=== PATIENT | female | born 1950 | race Caucasian/White ===

== ENCOUNTER 2022-03-27 11:57 | Inpatient (IN) | payer MEDICARE, BC ==
[~2022-03-27] VITALS: Ht 160 cm; Wt 45.5 kg
[2022-03-27] MEDS ORDERED: normal saline 1000ML IV soln IVB ONE (14:45)
[2022-03-27] MEDS ORDERED: LORazepam 2 mg/ml vial IV ONE (14:45)
[2022-03-27 15:26] LABS: CLARITY,URINE SLIGHTLY CLOUDY (Clear); COLOR,URINE YELLOW (Yellow); GLUCOSE, URINE NEGATIVE (Neg); KETONES,URINE 15 mg/dl (Neg); LEUKOCYTE ESTERASE ,URINE TRACE (Neg); NITRITES, URINE NEGATIVE (Neg); OCCULT BLOOD,URINE TRACE-INTACT (Neg); PROTEIN,URINE 30 mg/dl (Neg); UA COLLECTION TYPE CLN CATCH MIDSTREAM; UROBILINOGEN,URINE 0.2 E.U/dL (0.2-1.0)
[2022-03-27 15:36] LABS: BASOPHILS % (AUTO) 0.2 % (0-1); EOSINOPHILS # (AUTO) 0.1 X10'3 (0-0.9); EOSINOPHILS % (AUTO) 0.5 % (0-6); HEMATOCRIT 31.9 % (35.0-45.0); HEMOGLOBIN 10.6 g/dl (12.0-16.0); LYMPHOCYTES # (AUTO) 0.6 X10'3 (1.1-4.8); LYMPHOCYTES % (AUTO) 5.1 % (21-51); MEAN CORPUSCULAR HEMOGLOBIN 29.8 PG (27.0-31.0); MEAN CORPUSCULAR HGB CONC 33.1 g/dL (33.0-36.5); MEAN CORPUSCULAR VOLUME 90.3 FL (78-98); MEAN PLATELET VOLUME 6.6 FL (7.4-10.4); MONOCYTES # (AUTO) 0.8 X10'3 (0-0.9); MONOCYTES % (AUTO) 6.5 % (2-12); NEUTROPHILS # (AUTO) 10.6 X10'3 (1.8-7.7); NEUTROPHILS % (AUTO) 87.7 % (42-75); PLATELET COUNT 423 X10'3 (140-440); RED BLOOD COUNT 3.54 X10'6 (4.20-5.60); RED CELL DISTRIBUTION WIDTH 12.5 % (11.5-14.5); WHITE BLOOD COUNT 12.1 X10'3 (4.5-11.0)
[2022-03-27 15:39] LABS: BACTERIA,URINE 1+ /HPF (Neg); RBC,URINE 0-2 /HPF (0-2); WBC,URINE 20-30 /HPF (0-4)
[2022-03-27 15:41] LABS: MUCUS STRANDS NONE SEEN /LPF (Neg); SQUAMOUS EPITHELIAL CELL,UR MODERATE /LPF (FEW); WBC CLUMPS,URINE FEW /HPF (NEGATIVE)
[2022-03-27 16:06] LABS: ALANINE AMINOTRANSFERASE 23 U/L (12-78); ALBUMIN 2.2 G/DL (3.4-5.0); ALBUMIN/GLOBULIN RATIO 0.6 (1.1-1.5); ALKALINE PHOSPHATASE 85 IU/L (46-116); ANION GAP 4 (8-16); ASPARTATE AMINO TRANSFERASE 22 U/L (10-37); BILIRUBIN,TOTAL 0.4 MG/DL (0.1-1.0); BLOOD UREA NITROGEN 10 MG/DL (7-18); BUN/CREATININE RATIO 21.7 (6.6-38.0); CALCIUM 8.3 MG/DL (8.5-10.1); CHLORIDE 84 MMOL/L (99-107); CREATININE 0.46 MG/DL (0.40-0.90); GLUCOSE 99 MG/DL (70-104); POTASSIUM 3.5 MMOL/L (3.5-5.1); TOTAL CARBON DIOXIDE 28.2 MMOL/L (24-32); TOTAL PROTEIN 6.2 G/DL (6.4-8.2); eGFR > 90 ML/MIN
[2022-03-27 16:11] LABS: SODIUM 116 MMOL/L (135-145)
[2022-03-27] MEDS ORDERED: CefTRIAXone 2gm/D5W 50ml BAG 50 ML IV ONE (16:25)
[2022-03-27] MEDS ORDERED: normal saline 1000ML IV soln IV ONE (16:26)
[2022-03-27] MEDS ORDERED: acetaminophen 325mg tablet PO PRN ×2 (17:55)
[2022-03-27] MEDS ORDERED: magnesium hydroxide 30ml (MOM) UD suspension PO PRN (17:55)
[2022-03-27] MEDS ORDERED: mag hydrox/Alum hydrox/simeth 30ml oral suspension PO PRN (17:55)
[2022-03-27] MEDS ORDERED: potassium Cl 40MEQ/1/2NS 520ml 520 ML IV PRN (17:55)
[2022-03-27] MEDS ORDERED: HYDROcodone/acetaminophen 10/325mg tab PO PRN (17:55)
[2022-03-27] MEDS ORDERED: ondansetron/PF 4mg/2ml inj IV PRN (17:55)
[2022-03-27] MEDS ORDERED: magnesium 4gm in 100ml NS 100 ML IV PRN (17:55)
[2022-03-27] MEDS ORDERED: HYDROcodone/acetaminophen 5mg/325mg tablet PO PRN (17:55)
[2022-03-27] MEDS ORDERED: potassium Cl 20 mEq SR tablet PO PRN ×2 (17:55)
[2022-03-27] MEDS ORDERED: magnesium Cl slow-release 64mg tablet PO PRN (17:55)
[2022-03-27] MEDS ORDERED: sodium chloride 3% IV.soln 100 ML IV PRN (18:10)
[2022-03-27 18:19] LABS: URINE AMPHETAMINE SCREEN NEGATIVE (Neg); URINE BARBITUATE SCREEN NEGATIVE (Neg); URINE BENZODIAZEPINES SCREEN POSITIVE (Neg); URINE CANNABINOID SCREEN NEGATIVE (Neg); URINE COCAINE SCREEN NEGATIVE (Neg); URINE METHADONE SCREEN NEGATIVE (Neg); URINE OPIATE SCREEN NEGATIVE (Neg); URINE PHENCYCLIDINE SCREEN NEGATIVE (Neg)
[2022-03-27 18:31] LABS: ETHANOL < 0.010 GM/DL (0.0-0.010); MAGNESIUM 1.5 MG/DL (1.5-2.4); POTASSIUM 3.5 MMOL/L (3.5-5.1)
[2022-03-27] MEDS ORDERED: iohexol 300mg/ml 100ml inj. ONE (18:52)
[2022-03-27] MEDS: K and/or MAG REPLACEMENT MC SCH (19:59)
[2022-03-27] MEDS: docusate sod 100mg capsule PO SCH (20:05)
[2022-03-27] MEDS: LORazepam 0.5 MG tablet PO SCH (20:05)
[2022-03-27 20:40] LABS: CLARITY,URINE CLEAR (Clear); GLUCOSE, URINE NEGATIVE (Neg); KETONES,URINE NEGATIVE (Neg); LEUKOCYTE ESTERASE ,URINE NEGATIVE (Neg); NITRITES, URINE NEGATIVE (Neg); OCCULT BLOOD,URINE NEGATIVE (Neg); PH,URINE 7.5 (4.8-8.0); PROTEIN,URINE NEGATIVE (Neg); UROBILINOGEN,URINE 0.2 E.U/dL (0.2-1.0)
[2022-03-27] MEDS ORDERED: temazepam 15mg capsule PO PRN (21:00)
--- NOTE | 2022-03-27 21:08 | NUR ---
PT WAS ATTEMPTING TO AMBULATE TO RESTROOM WITH ASSISTING HER. PT STATES SHE LOST BALANCE AND LANDED ON HER HEAD FROM STANDING POSITION. UPON ASSESSMENT, PUPILS ARE 3 MM IN DIAMETER AND EQUAL AND REACTIVE TO LIGHT. BACK OF HEAD IS UNREMARKABLE. NO REDNESS, SWELLING, OR OPEN AREAS NOTED. MARIEL JEFFREY INFORMED OF FALL. MARIEL JEFFREY GAVE VERBAL ORDERS TO HAVE A HEAD CT DONE.
[2022-03-27 21:38] LABS: UA COLLECTION TYPE NON-SPECIFIED
[2022-03-27 21:39] LABS: COLOR,URINE STRAW (Yellow)
[2022-03-27 21:55] LABS: SODIUM,URINE RANDOM 19 MEQ/L; TOTAL PROTEIN,URINE RANDOM < 6.0 MG/DL
[2022-03-27 22:14] LABS: OSMOLALITY UA 169 MOSM/K (50-1400)
[2022-03-27 23:02] LABS: UA EOSINOPHILS NO EOS /HPF
--- NOTE | 2022-03-28 02:56 | NUR ---
PAGER ID: [phone] MESSAGE: TyosminCaitlin, in ER bed 7 had a critical low Na of 116 earlier in the afternoon. Na now 126 at 0050. Do you want the 3% Na ordered earlier, or NS maintenance? Amrita TRUONG [phone]
[2022-03-28] MEDS ORDERED: normal saline 1000ml 1,000 ML IVB SCH (03:05)
[2022-03-28] MEDS: docusate sod 100mg capsule PO SCH ×2 (08:00→20:30)
[2022-03-28] MEDS: K and/or MAG REPLACEMENT MC SCH ×2 (08:00→20:00)
[2022-03-28] MEDS: ESCITALOPRAM OXALATE 5 MG TABLET PO SCH (08:33)
[2022-03-28] MEDS: enoxaparin 40mg/0.4ml syringe SUBCUT SCH (08:33)
[2022-03-28] MEDS: LORazepam 0.5 MG tablet PO SCH ×2 (08:33→20:30)
--- NOTE | 2022-03-28 09:35 | NUR ---
PT OUT TO MRI.
--- NOTE | 2022-03-28 09:45 | NUR ---
SPOKE WITH DR. RODRIGUEZ AND RECEIVED VO PT TO CONTINUE EYE GTTS FROM HOME THAT PT IS TAKING FOR POST CATARACT REMOVAL
[2022-03-28] MEDS ORDERED: OFLO5DRO LEFTEYE (10:35)
[2022-03-28] MEDS ORDERED: PRED5DRO23 LEFTEYE (10:35)
[2022-03-28] MEDS ORDERED: KETO5DRO82 LEFTEYE (10:35)
[2022-03-28 11:04] LABS: BASOPHILS % (AUTO) 0.3 % (0-1); EOSINOPHILS # (AUTO) 0.1 X10'3 (0-0.9); EOSINOPHILS % (AUTO) 0.8 % (0-6); HEMATOCRIT 35.7 % (35.0-45.0); HEMOGLOBIN 11.9 g/dl (12.0-16.0); LYMPHOCYTES # (AUTO) 0.5 X10'3 (1.1-4.8); LYMPHOCYTES % (AUTO) 5.1 % (21-51); MEAN CORPUSCULAR HEMOGLOBIN 30.3 PG (27.0-31.0); MEAN CORPUSCULAR HGB CONC 33.2 g/dL (33.0-36.5); MEAN CORPUSCULAR VOLUME 91.3 FL (78-98); MEAN PLATELET VOLUME 6.7 FL (7.4-10.4); MONOCYTES # (AUTO) 0.5 X10'3 (0-0.9); MONOCYTES % (AUTO) 5.7 % (2-12); NEUTROPHILS % (AUTO) 88.1 % (42-75); PLATELET COUNT 444 X10'3 (140-440); RED BLOOD COUNT 3.91 X10'6 (4.20-5.60); RED CELL DISTRIBUTION WIDTH 12.8 % (11.5-14.5); WHITE BLOOD COUNT 9.1 X10'3 (4.5-11.0)
[2022-03-28] MEDS: prednisoLONE acetate 1% ophth susp 5ml LEFTEYE SCH ×4 (11:26→20:30)
[2022-03-28] MEDS ORDERED: GADOTERATE MEGLUMINE 7.5 MMOL/15 ML VIAL IV ONE (11:27)
[2022-03-28 11:29] LABS: ALANINE AMINOTRANSFERASE 22 U/L (12-78); ALBUMIN 2.1 G/DL (3.4-5.0); ALBUMIN/GLOBULIN RATIO 0.5 (1.1-1.5); ALKALINE PHOSPHATASE 85 IU/L (46-116); ANION GAP 8 (8-16); ASPARTATE AMINO TRANSFERASE 22 U/L (10-37); BILIRUBIN,TOTAL 0.3 MG/DL (0.1-1.0); BLOOD UREA NITROGEN 7 MG/DL (7-18); BUN/CREATININE RATIO 12.3 (6.6-38.0); CALCIUM 8.3 MG/DL (8.5-10.1); CHLORIDE 94 MMOL/L (99-107); CREATININE 0.57 MG/DL (0.40-0.90); GLUCOSE 85 MG/DL (70-104); MAGNESIUM 1.7 MG/DL (1.5-2.4); PHOSPHORUS 2.8 MG/DL (2.3-4.5); POTASSIUM 3.5 MMOL/L (3.5-5.1); SODIUM 129 MMOL/L (135-145); TOTAL CARBON DIOXIDE 26.6 MMOL/L (24-32); TOTAL PROTEIN 6.1 G/DL (6.4-8.2); eGFR > 90 ML/MIN
[2022-03-28] MEDS: ketorolac tromethamine 0.5% ophthalmic drops LEFTEYE SCH ×4 (11:34→20:30)
[2022-03-28] MEDS ORDERED: CHOL10006 PO (11:45)
[2022-03-28] MEDS ORDERED: ESCI-8 PO (11:45)
[2022-03-28] MEDS ORDERED: CALC-97 PO (11:45)
[2022-03-28] MEDS: ofloxacin 0.33% 5ml ophthalmic drops LEFTEYE SCH ×4 (11:45→20:30)
[2022-03-28] MEDS ORDERED: MULT-1085 PO (11:45)
--- NOTE | 2022-03-28 19:30 | NUR ---
Patient in room PCU 3024. I have received report from Amrita NICHOLS RN and had the opportunity to ask questions and assume patient care.
[2022-03-28 20:00] VITALS: BP 107/62
[2022-03-29 02:00] VITALS: BP 106/63
[2022-03-29 06:00] VITALS: BP 114/63
[2022-03-29 06:41] LABS: BASOPHILS % (AUTO) 0.4 % (0-1); EOSINOPHILS % (AUTO) 0.3 % (0-6); HEMATOCRIT 30.4 % (35.0-45.0); HEMOGLOBIN 10.6 g/dl (12.0-16.0); LYMPHOCYTES # (AUTO) 0.5 X10'3 (1.1-4.8); LYMPHOCYTES % (AUTO) 5.1 % (21-51); MEAN CORPUSCULAR HEMOGLOBIN 31.1 PG (27.0-31.0); MEAN CORPUSCULAR HGB CONC 34.9 g/dL (33.0-36.5); MEAN CORPUSCULAR VOLUME 88.9 FL (78-98); MEAN PLATELET VOLUME 6.6 FL (7.4-10.4); MONOCYTES # (AUTO) 0.9 X10'3 (0-0.9); MONOCYTES % (AUTO) 9.2 % (2-12); NEUTROPHILS # (AUTO) 8.7 X10'3 (1.8-7.7); PLATELET COUNT 407 X10'3 (140-440); RED BLOOD COUNT 3.42 X10'6 (4.20-5.60); RED CELL DISTRIBUTION WIDTH 12.6 % (11.5-14.5); WHITE BLOOD COUNT 10.3 X10'3 (4.5-11.0)
--- NOTE | 2022-03-29 06:53 | NUR ---
Problems reprioritized. Patient report given, questions answered & plan of care reviewed with Karen TRUONG.
[2022-03-29 07:11] LABS: ALANINE AMINOTRANSFERASE 17 U/L (12-78); ALBUMIN 1.8 G/DL (3.4-5.0); ALBUMIN/GLOBULIN RATIO 0.5 (1.1-1.5); ALKALINE PHOSPHATASE 74 IU/L (46-116); ANION GAP 6 (8-16); ASPARTATE AMINO TRANSFERASE 20 U/L (10-37); BILIRUBIN,TOTAL 0.4 MG/DL (0.1-1.0); BLOOD UREA NITROGEN 9 MG/DL (7-18); BUN/CREATININE RATIO 19.1 (6.6-38.0); CALCIUM 7.8 MG/DL (8.5-10.1); CHLORIDE 95 MMOL/L (99-107); CREATININE 0.47 MG/DL (0.40-0.90); GLUCOSE 86 MG/DL (70-104); MAGNESIUM 1.6 MG/DL (1.5-2.4); PHOSPHORUS 2.5 MG/DL (2.3-4.5); POTASSIUM 3.9 MMOL/L (3.5-5.1); SODIUM 129 MMOL/L (135-145); TOTAL CARBON DIOXIDE 27.7 MMOL/L (24-32); TOTAL PROTEIN 5.4 G/DL (6.4-8.2); eGFR > 90 ML/MIN
[2022-03-29] MEDS: K and/or MAG REPLACEMENT MC SCH ×2 (08:00→20:00)
--- NOTE | 2022-03-29 08:44 | NUR ---
Noted low BMI using bed scale wt. Pt appears WD/WN per MD note, no other wt hx in EMR. Pt denies any recent wt loss or decrease in appetite per MST. On Heart Healthy diet pending PO intake, Will continue to monitor. Addendum: 03/29/22 at [address] Amended: Links added.
[2022-03-29] MEDS: prednisoLONE acetate 1% ophth susp 5ml LEFTEYE SCH ×4 (08:51→20:52)
[2022-03-29] MEDS: ESCITALOPRAM OXALATE 5 MG TABLET PO SCH (08:52)
[2022-03-29] MEDS: LORazepam 0.5 MG tablet PO SCH ×2 (08:52→20:45)
[2022-03-29] MEDS: docusate sod 100mg capsule PO SCH ×2 (08:53→20:45)
[2022-03-29] MEDS: enoxaparin 40mg/0.4ml syringe SUBCUT SCH (08:53)
[2022-03-29] MEDS: ofloxacin 0.33% 5ml ophthalmic drops LEFTEYE SCH ×4 (08:57→20:52)
[2022-03-29] MEDS: ketorolac tromethamine 0.5% ophthalmic drops LEFTEYE SCH ×4 (09:10→20:52)
[2022-03-29 11:50] VITALS: BP 95/55
[2022-03-29] MEDS: DOXYCYCLINE 100MG CAPSULE PO SCH ×2 (12:38→20:45)
[2022-03-29 12:47] LABS: OSMOLALITY 260 MOSM/K (280-300)
[2022-03-29 12:50] LABS: SODIUM 126 MMOL/L (135-145)
[2022-03-29] MEDS: normal saline 1000ml 1,000 ML IV SCH (15:05)
[2022-03-29 18:00] VITALS: BP 109/64
--- NOTE | 2022-03-29 18:00 | NUR ---
Patient in room PCU 3024. I have received report from Karen TRUONG and had the opportunity to ask questions and assume patient care.
--- NOTE | 2022-03-29 18:31 | NUR ---
Report to Sophy TRUONG remains at bedside. Patient is very fatigued. Encouraged to rest, use wick for noc to conserve energy.
[2022-03-29 22:00] VITALS: BP 104/58
[2022-03-30 02:00] VITALS: BP 108/55
[2022-03-30] MEDS: normal saline 1000ml 1,000 ML IV SCH ×2 (02:39→09:25)
[2022-03-30 06:38] LABS: BASOPHILS % (AUTO) 0.5 % (0-1); EOSINOPHILS % (AUTO) 0.3 % (0-6); HEMATOCRIT 28.6 % (35.0-45.0); LYMPHOCYTES # (AUTO) 0.5 X10'3 (1.1-4.8); LYMPHOCYTES % (AUTO) 5.8 % (21-51); MEAN CORPUSCULAR HEMOGLOBIN 31.2 PG (27.0-31.0); MEAN CORPUSCULAR HGB CONC 34.9 g/dL (33.0-36.5); MEAN CORPUSCULAR VOLUME 89.2 FL (78-98); MEAN PLATELET VOLUME 6.4 FL (7.4-10.4); MONOCYTES # (AUTO) 0.8 X10'3 (0-0.9); MONOCYTES % (AUTO) 8.7 % (2-12); NEUTROPHILS # (AUTO) 7.8 X10'3 (1.8-7.7); NEUTROPHILS % (AUTO) 84.7 % (42-75); PLATELET COUNT 366 X10'3 (140-440); RED CELL DISTRIBUTION WIDTH 12.6 % (11.5-14.5); WHITE BLOOD COUNT 9.2 X10'3 (4.5-11.0)
[2022-03-30 06:46] LABS: ALANINE AMINOTRANSFERASE 17 U/L (12-78); ALBUMIN 1.6 G/DL (3.4-5.0); ALBUMIN/GLOBULIN RATIO 0.5 (1.1-1.5); ALKALINE PHOSPHATASE 71 IU/L (46-116); ANION GAP 5 (8-16); ASPARTATE AMINO TRANSFERASE 17 U/L (10-37); BILIRUBIN,TOTAL 0.4 MG/DL (0.1-1.0); BLOOD UREA NITROGEN 6 MG/DL (7-18); BUN/CREATININE RATIO 14.6 (6.6-38.0); CALCIUM 7.5 MG/DL (8.5-10.1); CHLORIDE 97 MMOL/L (99-107); CREATININE 0.41 MG/DL (0.40-0.90); GLUCOSE 86 MG/DL (70-104); MAGNESIUM 1.6 MG/DL (1.5-2.4); PHOSPHORUS 2.6 MG/DL (2.3-4.5); POTASSIUM 3.1 MMOL/L (3.5-5.1); SODIUM 130 MMOL/L (135-145); TOTAL CARBON DIOXIDE 27.8 MMOL/L (24-32); eGFR > 90 ML/MIN
[2022-03-30 07:00] VITALS: BP 106/57
--- NOTE | 2022-03-30 07:20 | NUR ---
Problems reprioritized. Patient report given, questions answered & plan of care reviewed with Delilah Vega RN.
[2022-03-30] MEDS: enoxaparin 40mg/0.4ml syringe SUBCUT SCH (09:23)
[2022-03-30] MEDS: ketorolac tromethamine 0.5% ophthalmic drops LEFTEYE SCH (09:23)
[2022-03-30] MEDS: prednisoLONE acetate 1% ophth susp 5ml LEFTEYE SCH (09:23)
[2022-03-30] MEDS: DOXYCYCLINE 100MG CAPSULE PO SCH (09:23)
[2022-03-30] MEDS: ofloxacin 0.33% 5ml ophthalmic drops LEFTEYE SCH (09:23)
[2022-03-30] MEDS: ESCITALOPRAM OXALATE 5 MG TABLET PO SCH (09:24)
[2022-03-30] MEDS: docusate sod 100mg capsule PO SCH (09:25)
[2022-03-30] MEDS: LORazepam 0.5 MG tablet PO SCH (09:25)
[2022-03-30 11:00] VITALS: BP 104/50
[2022-03-30] MEDS ORDERED: ALPRAZolam 0.25mg tablet PO PRN (11:35)
[2022-03-30] MEDS ORDERED: ESCI5TAB PO (11:46)
[2022-03-30] MEDS ORDERED: ALPR-149 PO (11:46)
[2022-03-30] MEDS ORDERED: DOXY-224 PO (11:46)
--- NOTE | 2022-03-30 14:35 | NUR ---
Patient was DC to home and went home with . PT eye drops went home with them. RX were escripted to [facility]. DC instructions and warning s/s were reviewed with patient and and they verbalized understanding. PIV was removed with cannula intact. Patient alert , oriented and appropriate at time of DC.
== END 2022-03-30 13:45 | disposition home health service (06) | DRG 689 ==
LOC: ER 11:58 → ED HOLD 17:56 → EDBEDREQ 20:34 → PCU 3S 03-28 19:25
PROVIDERS: ADMIT Family Medicine; ATTEND Family Medicine
PROC: BW251ZZ Computerized Tomography (CT Scan) of Chest, Abdomen and Pelvis using Low Osmolar Contrast (ICD-10-PCS; principal; 2022-03-27)
DX: N39.0 Urinary tract infection, site not specified (principal); E43 Unspecified severe protein-calorie malnutrition; E87.1 Hypo-osmolality and hyponatremia; Z68.1 Body mass index [BMI] 19.9 or less, adult; E86.0 Dehydration; B95.61 Methicillin susceptible Staphylococcus aureus infection as the cause of diseases classified elsewhere; E83.51 Hypocalcemia; E88.09 Other disorders of plasma-protein metabolism, not elsewhere classified; F32.A Depression, unspecified; F41.0 Panic disorder [episodic paroxysmal anxiety]; F41.1 Generalized anxiety disorder; K62.3 Rectal prolapse; Z79.899 Other long term (current) drug therapy; Z88.8 Allergy status to other drugs, medicaments and biological substances
CPT/HCPCS: 36415; 70450; 70553; 71260; 74177; 80053; 80305; 80320; 81001; 81003; 82570; 83735; 83880; 83930; 83935; 84100; 84132; 84133; 84156; 84295; 84300; 84443; 84484; 85025; 87077; 87088; 87186; 87207; 93005; 96361; 96365; 96375; 99285; A9575; G0378; J0696; J1650; J2060; J3490; J7030; Q9967

== ENCOUNTER 2022-04-04 13:51 | Emergency (ER) | payer MEDICARE, BC ==
[~2022-04-04] VITALS: Ht 162.6 cm; Wt 50.0 kg
[~2022-04-04 13:51] MED LIST: ALPR-149 PO; CALC-97 PO; CHOL10006 PO; DOXY-224 PO; ESCI5TAB PO; KETO5DRO82 LEFTEYE; MULT-1085 PO; OFLO5DRO LEFTEYE; PRED5DRO23 LEFTEYE
[2022-04-04 14:03] VITALS: BP 95/53
[2022-04-04] MEDS ORDERED: normal saline 1000ML IV soln IVB ONE (14:25)
[2022-04-04 14:56] LABS: BASOPHILS # (AUTO) 0.1 X10'3 (0-0.2); BASOPHILS % (AUTO) 0.7 % (0-1); EOSINOPHILS % (AUTO) 0.3 % (0-6); HEMATOCRIT 30.6 % (35.0-45.0); HEMOGLOBIN 10.5 g/dl (12.0-16.0); LYMPHOCYTES # (AUTO) 0.5 X10'3 (1.1-4.8); LYMPHOCYTES % (AUTO) 5.1 % (21-51); MEAN CORPUSCULAR HEMOGLOBIN 30.6 PG (27.0-31.0); MEAN CORPUSCULAR HGB CONC 34.4 g/dL (33.0-36.5); MEAN PLATELET VOLUME 6.1 FL (7.4-10.4); MONOCYTES # (AUTO) 0.7 X10'3 (0-0.9); MONOCYTES % (AUTO) 7.2 % (2-12); NEUTROPHILS # (AUTO) 8.8 X10'3 (1.8-7.7); NEUTROPHILS % (AUTO) 86.7 % (42-75); PLATELET COUNT 437 X10'3 (140-440); RED BLOOD COUNT 3.44 X10'6 (4.20-5.60); RED CELL DISTRIBUTION WIDTH 13.1 % (11.5-14.5); WHITE BLOOD COUNT 10.2 X10'3 (4.5-11.0)
[2022-04-04 15:06] LABS: ALANINE AMINOTRANSFERASE 16 U/L (12-78); ALBUMIN/GLOBULIN RATIO 0.5 (1.1-1.5); ALKALINE PHOSPHATASE 77 IU/L (46-116); ANION GAP 6 (8-16); ASPARTATE AMINO TRANSFERASE 20 U/L (10-37); BILIRUBIN,TOTAL 0.3 MG/DL (0.1-1.0); BLOOD UREA NITROGEN 10 MG/DL (7-18); BUN/CREATININE RATIO 19.6 (6.6-38.0); CALCIUM 8.5 MG/DL (8.5-10.1); CHLORIDE 96 MMOL/L (99-107); CREATININE 0.51 MG/DL (0.40-0.90); GLUCOSE 90 MG/DL (70-104); LIPASE 170 U/L (73-393); POTASSIUM 3.7 MMOL/L (3.5-5.1); SODIUM 131 MMOL/L (135-145); TOTAL CARBON DIOXIDE 29.4 MMOL/L (24-32); eGFR > 90 ML/MIN
[2022-04-04 16:01] LABS: CLARITY,URINE CLEAR (Clear); GLUCOSE, URINE NEGATIVE (Neg); KETONES,URINE NEGATIVE (Neg); LEUKOCYTE ESTERASE ,URINE SMALL (Neg); NITRITES, URINE NEGATIVE (Neg); OCCULT BLOOD,URINE SMALL (Neg); PH,URINE 7.5 (4.8-8.0); PROTEIN,URINE NEGATIVE (Neg); UROBILINOGEN,URINE 0.2 E.U/dL (0.2-1.0)
[2022-04-04 16:04] LABS: COLOR,URINE STRAW (Yellow); UA COLLECTION TYPE CLN CATCH MIDSTREAM
[2022-04-04 16:27] LABS: SQUAMOUS EPITHELIAL CELL,UR FEW /LPF (FEW)
[2022-04-04 16:29] LABS: BACTERIA,URINE FEW /HPF (Neg); RBC,URINE NONE SEEN /HPF (0-2)
== END 2022-04-04 16:30 | disposition home or self-care (01) ==
LOC: ER 13:51
DX: K62.3 Rectal prolapse (principal); Z88.1 Allergy status to other antibiotic agents
CPT/HCPCS: 36415; 80053; 81001; 83690; 85025; 87088; 99284; J7030